=== PATIENT | female | born 1935 | race Two or more races ===

== ENCOUNTER → 2020-09-12 | Outpatient (CLI) | payer MEDICARE | END | disposition home or self-care (01) | LOC: MSC 15:30 | PROVIDERS: ATTEND Internal Medicine | DX: J06.9 Acute upper respiratory infection, unspecified (principal); R41.89 Other symptoms and signs involving cognitive functions and awareness; R46.89 Other symptoms and signs involving appearance and behavior; I73.00 Raynaud's syndrome without gangrene; I10 Essential (primary) hypertension ==

== ENCOUNTER 2020-10-10 11:04 | Outpatient (CLI) | payer MEDICARE | END 2020-10-10 23:59 | disposition home or self-care (01) | LOC: WOU 11:04 | PROVIDERS: ATTEND Podiatrist Foot & Ankle Surgery | DX: S90.31XA Contusion of right foot, initial encounter (principal); W22.8XXA Striking against or struck by other objects, initial encounter; Y92.89 Other specified places as the place of occurrence of the external cause; R60.0 Localized edema; B35.1 Tinea unguium; M79.674 Pain in right toe(s) | CPT/HCPCS: 73630; G0463 ==

== ENCOUNTER 2020-10-21 09:44 | Outpatient (CLI) | payer MEDICARE | END 2020-10-21 23:59 | disposition home or self-care (01) | LOC: WOU 09:44 | PROVIDERS: ATTEND Podiatrist Foot & Ankle Surgery | DX: M20.11 Hallux valgus (acquired), right foot (principal); M20.21 Hallux rigidus, right foot; L60.0 Ingrowing nail; R60.0 Localized edema; S90.31XD Contusion of right foot, subsequent encounter; W22.8XXD Striking against or struck by other objects, subsequent encounter | CPT/HCPCS: G0463 ==

== ENCOUNTER → 2020-12-05 | Outpatient (CLI) | payer MEDICARE | END | disposition home or self-care (01) | LOC: MSC 12:30 | PROVIDERS: ATTEND Internal Medicine | DX: Z09 Encounter for follow-up examination after completed treatment for conditions other than malignant neoplasm (principal); J06.9 Acute upper respiratory infection, unspecified; R41.89 Other symptoms and signs involving cognitive functions and awareness; R46.89 Other symptoms and signs involving appearance and behavior; R06.00 Dyspnea, unspecified; I73.00 Raynaud's syndrome without gangrene; I10 Essential (primary) hypertension; Z85.3 Personal history of malignant neoplasm of breast; Z87.440 Personal history of urinary (tract) infections; Z79.899 Other long term (current) drug therapy ==

== ENCOUNTER 2021-05-14 14:30 | Outpatient (CLI) | payer MEDICARE | END 2021-05-14 23:59 | disposition home or self-care (01) | LOC: MSC 14:30 | PROVIDERS: ATTEND Internal Medicine | DX: M54.9 Dorsalgia, unspecified (principal); R13.10 Dysphagia, unspecified; K59.00 Constipation, unspecified; J06.9 Acute upper respiratory infection, unspecified; R41.89 Other symptoms and signs involving cognitive functions and awareness; R46.89 Other symptoms and signs involving appearance and behavior; R06.00 Dyspnea, unspecified; I73.00 Raynaud's syndrome without gangrene; I10 Essential (primary) hypertension ==

== ENCOUNTER → 2021-09-11 | Outpatient (CLI) | payer MEDICARE | END | disposition home or self-care (01) | LOC: MSC 13:30 | PROVIDERS: ATTEND Internal Medicine | DX: Z51.89 Encounter for other specified aftercare (principal); R13.10 Dysphagia, unspecified; M54.9 Dorsalgia, unspecified; K59.00 Constipation, unspecified; J39.8 Other specified diseases of upper respiratory tract; R41.89 Other symptoms and signs involving cognitive functions and awareness; R46.89 Other symptoms and signs involving appearance and behavior; R06.00 Dyspnea, unspecified; I73.00 Raynaud's syndrome without gangrene; I10 Essential (primary) hypertension ==

== ENCOUNTER → 2021-09-22 | Outpatient (CLI) | payer MEDICARE | END | disposition home or self-care (01) | LOC: MSC 15:00 | PROVIDERS: ATTEND Internal Medicine | DX: J39.8 Other specified diseases of upper respiratory tract (principal); R13.10 Dysphagia, unspecified; M54.9 Dorsalgia, unspecified; K59.00 Constipation, unspecified; R41.89 Other symptoms and signs involving cognitive functions and awareness; R46.89 Other symptoms and signs involving appearance and behavior; R06.00 Dyspnea, unspecified; I73.00 Raynaud's syndrome without gangrene; I10 Essential (primary) hypertension ==

== ENCOUNTER 2022-02-23 11:10 | Outpatient (CLI) | payer MEDICARE ==
[2022-02-23 12:33] LABS: BASOPHILS % (AUTO) 0.5 % (0.0-2.0); EOSINOPHILS % (AUTO) 1.4 % (0.0-6.0); HEMATOCRIT 37 % (33-45); HEMOGLOBIN 12.3 g/dL (11.5-14.8); LYMPHOCYTES # (AUTO) 1.4 K/uL (0.8-4.8); LYMPHOCYTES % (AUTO) 23.2 % (20.0-44.0); MEAN CORPUSCULAR HGB CONC 33 g/dl (31.0-36.0); MEAN CORPUSCULAR VOLUME 87 fL (82-100); MONOCYTES # (AUTO) 0.5 K/uL (0.1-1.30); MONOCYTES % (AUTO) 8.3 % (2.0-12.0); NEUTROPHILS # (AUTO) 4.1 K/uL (1.8-8.9); NEUTROPHILS % (AUTO) 66.6 % (43.0-81.0); PLATELET COUNT (AUTO) 331 K/uL (150-450); RED BLOOD CELL COUNT(AUTO) 4.29 MIL/uL (4.0-5.2); WHITE BLOOD COUNT (AUTO) 6.1 K/uL (4.3-11.0)
[2022-02-23 12:51] LABS: IRON, SERUM 39 ug/dl (50-175); TOTAL IRON BINDING CAPACITY 371 ug/dl (250-450)
[2022-02-23 13:04] LABS: C-REACTIVE PROTEIN 0.5 mg/dL (0.0-0.9); CHOLESTEROL 228 mg/dL (<200); FERRITIN 41 ng/mL (8-388); HDL CHOLESTEROL 76 mg/dL (40-60); LDL 121 mg/dL (0-99); THYROID STIMULATING HORMONE 1.397 uIU/mL (0.358-3.74); TRIGLYCERIDES 79 mg/dL (30-150)
[2022-02-23 13:15] LABS: ALANINE AMINOTRANSFERASE 18 U/L (12-78); ALBUMIN 3.4 g/dL (3.4-5.0); ALKALINE PHOSPHATASE 108 U/L (46-116); ASPARTATE AMINOTRANSFERASE 13 U/L (15-37); BILIRUBIN,TOTAL 0.5 mg/dL (0.2-1.0); CALCIUM, SERUM 9.2 mg/dL (8.5-10.1); CARBON DIOXIDE 31 mmol/L (21-32); CHLORIDE 98 mmol/L (98-107); CREATININE 0.5 mg/dL (0.6-1.3); GLUCOSE 99 mg/dL (74-106); MAGNESIUM 2.1 mg/dL (1.8-2.4); PHOSPHORUS 3.4 mg/dL (2.5-4.9); POTASSIUM 3.9 mmol/L (3.5-5.1); SODIUM SERUM 135 mmol/L (136-145); TOTAL PROTEIN, SERUM 7.9 g/dL (6.4-8.2); UREA NITROGEN, BLOOD 14 mg/dL (7-18)
== END 2022-02-23 23:59 ==
LOC: MSC 11:10
PROVIDERS: ATTEND Internal Medicine
DX: S81.802A Unspecified open wound, left lower leg, initial encounter (principal); I10 Essential (primary) hypertension; J06.9 Acute upper respiratory infection, unspecified; Z96.642 Presence of left artificial hip joint; Z91.81 History of falling; R13.10 Dysphagia, unspecified; M54.9 Dorsalgia, unspecified; K59.00 Constipation, unspecified; R41.89 Other symptoms and signs involving cognitive functions and awareness; R46.89 Other symptoms and signs involving appearance and behavior; R06.00 Dyspnea, unspecified; I73.00 Raynaud's syndrome without gangrene; Z90.13 Acquired absence of bilateral breasts and nipples; Z79.899 Other long term (current) drug therapy
CPT/HCPCS: 36415; 80053; 80061; 82306; 82607; 82728; 82746; 83036; 83540; 83735; 84100; 84145; 84439; 84443; 85025; 85652; 86140; G0463

== ENCOUNTER 2022-03-15 13:20 | Outpatient (CLI) | payer MEDICARE | END 2022-03-15 23:59 | disposition home health service (06) | LOC: WOU 13:20 | PROVIDERS: ATTEND Surgery | DX: L03.116 Cellulitis of left lower limb (principal); M16.9 Osteoarthritis of hip, unspecified; M62.50 Muscle wasting and atrophy, not elsewhere classified, unspecified site; I10 Essential (primary) hypertension | CPT/HCPCS: G0463 ==

== ENCOUNTER 2022-03-23 10:30 | Outpatient (CLI) | payer MEDICARE ==
[2022-03-23] MEDS ORDERED: UREA 10% -AHA 4% CREAM 57 GM TUBE ONE (10:43)
[2022-03-23] MEDS ORDERED: HYDROCORTISONE 1% CREAM 28.35 GM TUBE TP ONE (10:43)
== END 2022-03-23 23:59 | disposition home health service (06) ==
LOC: WOU 10:30
PROVIDERS: ATTEND Podiatrist Foot & Ankle Surgery
DX: I87.2 Venous insufficiency (chronic) (peripheral) (principal); M16.9 Osteoarthritis of hip, unspecified; I10 Essential (primary) hypertension; M62.50 Muscle wasting and atrophy, not elsewhere classified, unspecified site
CPT/HCPCS: G0463

== ENCOUNTER 2022-06-07 13:00 | Outpatient (CLI) | payer MEDICARE | END 2022-06-07 23:59 | disposition home or self-care (01) | LOC: MSC 13:00 | PROVIDERS: ATTEND Internal Medicine | DX: R54 Age-related physical debility (principal); S81.802D Unspecified open wound, left lower leg, subsequent encounter; Z96.642 Presence of left artificial hip joint; Z91.81 History of falling; I10 Essential (primary) hypertension; J39.8 Other specified diseases of upper respiratory tract; R13.10 Dysphagia, unspecified; M54.9 Dorsalgia, unspecified; K59.00 Constipation, unspecified; R41.89 Other symptoms and signs involving cognitive functions and awareness; R46.89 Other symptoms and signs involving appearance and behavior; R06.00 Dyspnea, unspecified; I73.00 Raynaud's syndrome without gangrene; Z85.3 Personal history of malignant neoplasm of breast; Z90.13 Acquired absence of bilateral breasts and nipples; Z79.899 Other long term (current) drug therapy ==

== ENCOUNTER → 2022-06-17 | Outpatient (CLI) | payer MEDICARE | END | disposition home or self-care (01) | LOC: MSC 11:15 | PROVIDERS: ATTEND Internal Medicine | DX: M79.605 Pain in left leg (principal); R53.81 Other malaise; Z96.642 Presence of left artificial hip joint; Z91.81 History of falling; I10 Essential (primary) hypertension; R05.9 Cough, unspecified; R13.10 Dysphagia, unspecified; M54.9 Dorsalgia, unspecified; Z79.1 Long term (current) use of non-steroidal anti-inflammatories (NSAID); K59.00 Constipation, unspecified; J06.9 Acute upper respiratory infection, unspecified; R41.89 Other symptoms and signs involving cognitive functions and awareness; R46.89 Other symptoms and signs involving appearance and behavior; R06.00 Dyspnea, unspecified; I73.00 Raynaud's syndrome without gangrene; Z85.3 Personal history of malignant neoplasm of breast; Z90.13 Acquired absence of bilateral breasts and nipples; Z79.899 Other long term (current) drug therapy ==

== ENCOUNTER → 2022-09-24 | Outpatient (CLI) | payer MEDICARE | END | disposition home or self-care (01) | LOC: MSC 14:45 | PROVIDERS: ATTEND Internal Medicine | DX: U07.1 COVID-19 (principal); M25.552 Pain in left hip; Z96.642 Presence of left artificial hip joint; M25.551 Pain in right hip; M79.605 Pain in left leg; R53.81 Other malaise; I10 Essential (primary) hypertension; R05.9 Cough, unspecified; R13.10 Dysphagia, unspecified; M54.9 Dorsalgia, unspecified; Z79.1 Long term (current) use of non-steroidal anti-inflammatories (NSAID); K59.00 Constipation, unspecified; J39.8 Other specified diseases of upper respiratory tract; R41.89 Other symptoms and signs involving cognitive functions and awareness; R46.89 Other symptoms and signs involving appearance and behavior; R06.00 Dyspnea, unspecified; I73.00 Raynaud's syndrome without gangrene; Z85.3 Personal history of malignant neoplasm of breast; Z90.13 Acquired absence of bilateral breasts and nipples; Z79.899 Other long term (current) drug therapy ==

== ENCOUNTER 2022-11-23 10:30 | Outpatient (CLI) | payer MEDICARE | END 2022-11-23 23:59 | disposition home or self-care (01) | LOC: MSC 10:30 | PROVIDERS: ATTEND Internal Medicine | DX: L97.929 Non-pressure chronic ulcer of unspecified part of left lower leg with unspecified severity (principal); L03.90 Cellulitis, unspecified; U07.1 COVID-19; M25.552 Pain in left hip; M25.551 Pain in right hip; M79.605 Pain in left leg; R53.81 Other malaise; I10 Essential (primary) hypertension; R05.9 Cough, unspecified; R13.10 Dysphagia, unspecified; M54.9 Dorsalgia, unspecified; Z79.1 Long term (current) use of non-steroidal anti-inflammatories (NSAID); K59.00 Constipation, unspecified; J06.9 Acute upper respiratory infection, unspecified; R41.89 Other symptoms and signs involving cognitive functions and awareness; R46.89 Other symptoms and signs involving appearance and behavior; R06.00 Dyspnea, unspecified; I73.00 Raynaud's syndrome without gangrene; Z85.3 Personal history of malignant neoplasm of breast; Z90.13 Acquired absence of bilateral breasts and nipples; Z79.899 Other long term (current) drug therapy ==

== ENCOUNTER → 2022-12-14 | Outpatient (CLI) | payer MEDICARE | END | disposition home or self-care (01) | LOC: MSC 14:30 | PROVIDERS: ATTEND Internal Medicine | DX: L97.928 Non-pressure chronic ulcer of unspecified part of left lower leg with other specified severity (principal); L03.116 Cellulitis of left lower limb; F32.A Depression, unspecified; U07.1 COVID-19; M25.551 Pain in right hip; I10 Essential (primary) hypertension; R05.9 Cough, unspecified; R13.10 Dysphagia, unspecified; M54.9 Dorsalgia, unspecified; Z79.1 Long term (current) use of non-steroidal anti-inflammatories (NSAID); J06.9 Acute upper respiratory infection, unspecified; R41.89 Other symptoms and signs involving cognitive functions and awareness; R46.89 Other symptoms and signs involving appearance and behavior; R06.00 Dyspnea, unspecified; Z85.3 Personal history of malignant neoplasm of breast; Z90.13 Acquired absence of bilateral breasts and nipples ==

== ENCOUNTER 2022-12-21 11:00 | Outpatient (CLI) | payer MEDICARE ==
[2022-12-21 12:25] LABS: BASOPHILS % (AUTO) 0.4 % (0.0-2.0); EOSINOPHILS % (AUTO) 0.5 % (0.0-6.0); HEMATOCRIT 42 % (33-45); HEMOGLOBIN 13.9 g/dL (11.5-14.8); LYMPHOCYTES # (AUTO) 0.9 K/uL (0.8-4.8); LYMPHOCYTES % (AUTO) 12.9 % (20.0-44.0); MEAN CORPUSCULAR HGB CONC 33 g/dl (31.0-36.0); MEAN CORPUSCULAR VOLUME 87 fL (82-100); MONOCYTES # (AUTO) 0.5 K/uL (0.1-1.30); MONOCYTES % (AUTO) 7.5 % (2.0-12.0); NEUTROPHILS # (AUTO) 5.6 K/uL (1.8-8.9); NEUTROPHILS % (AUTO) 78.7 % (43.0-81.0); PLATELET COUNT (AUTO) 310 K/uL (150-450); RED BLOOD CELL COUNT(AUTO) 4.82 MIL/uL (4.0-5.2); WHITE BLOOD COUNT (AUTO) 7.1 K/uL (4.3-11.0)
[2022-12-21 12:51] LABS: IRON, SERUM 56 ug/dl (50-175); TOTAL IRON BINDING CAPACITY 340 ug/dl (250-450)
[2022-12-21 12:57] LABS: C-REACTIVE PROTEIN 1.1 mg/dL (0.0-0.9); CHOLESTEROL 223 mg/dL (<200); FERRITIN 85 ng/mL (8-388); HDL CHOLESTEROL 91 mg/dL (40-60); LDL 117 mg/dL (0-99); THYROID STIMULATING HORMONE 1.503 uIU/mL (0.358-3.74); TRIGLYCERIDES 77 mg/dL (30-150)
[2022-12-21 13:16] LABS: ALANINE AMINOTRANSFERASE 22 U/L (12-78); ALBUMIN 3.7 g/dL (3.4-5.0); ALKALINE PHOSPHATASE 118 U/L (46-116); ASPARTATE AMINOTRANSFERASE 17 U/L (15-37); BILIRUBIN,TOTAL 0.6 mg/dL (0.2-1.0); CALCIUM, SERUM 9.6 mg/dL (8.5-10.1); CARBON DIOXIDE 31 mmol/L (21-32); CHLORIDE 97 mmol/L (98-107); CREATININE 0.5 mg/dL (0.6-1.3); GLUCOSE 105 mg/dL (74-106); MAGNESIUM 2.5 mg/dL (1.8-2.4); PHOSPHORUS 3.4 mg/dL (2.5-4.9); SODIUM SERUM 134 mmol/L (136-145); UREA NITROGEN, BLOOD 16 mg/dL (7-18)
== END 2022-12-21 23:59 | disposition home or self-care (01) ==
LOC: MSC 11:00
PROVIDERS: ATTEND Internal Medicine
DX: L97.928 Non-pressure chronic ulcer of unspecified part of left lower leg with other specified severity (principal); L03.116 Cellulitis of left lower limb; I87.2 Venous insufficiency (chronic) (peripheral); F32.A Depression, unspecified; U07.1 COVID-19; I10 Essential (primary) hypertension; M25.551 Pain in right hip; S72.92XD Unspecified fracture of left femur, subsequent encounter for closed fracture with routine healing; Z96.642 Presence of left artificial hip joint; R05.9 Cough, unspecified; R13.10 Dysphagia, unspecified; M54.9 Dorsalgia, unspecified; Z79.1 Long term (current) use of non-steroidal anti-inflammatories (NSAID); J06.9 Acute upper respiratory infection, unspecified; R41.89 Other symptoms and signs involving cognitive functions and awareness; R46.89 Other symptoms and signs involving appearance and behavior; R06.00 Dyspnea, unspecified; Z85.3 Personal history of malignant neoplasm of breast; Z90.13 Acquired absence of bilateral breasts and nipples; Z79.899 Other long term (current) drug therapy
CPT/HCPCS: 80061; 84145; 85025; 83540; 83735; 83036; 84100; 85652; 36415; 82746; 84443; 82607; 80053; 82728; 86140; 82306; G0463

== ENCOUNTER 2023-02-15 09:15 | Outpatient (CLI) | payer MEDICARE | END 2023-02-15 23:59 | disposition home or self-care (01) | LOC: MSC 09:15 | PROVIDERS: ATTEND Internal Medicine | DX: K30 Functional dyspepsia (principal); R19.7 Diarrhea, unspecified; L97.928 Non-pressure chronic ulcer of unspecified part of left lower leg with other specified severity; L03.116 Cellulitis of left lower limb; I87.2 Venous insufficiency (chronic) (peripheral); F32.A Depression, unspecified; U07.1 COVID-19; I10 Essential (primary) hypertension; M25.551 Pain in right hip; Z96.642 Presence of left artificial hip joint; R13.10 Dysphagia, unspecified; M54.9 Dorsalgia, unspecified; Z79.1 Long term (current) use of non-steroidal anti-inflammatories (NSAID); J06.9 Acute upper respiratory infection, unspecified; R41.89 Other symptoms and signs involving cognitive functions and awareness; R46.89 Other symptoms and signs involving appearance and behavior; R06.00 Dyspnea, unspecified; Z85.3 Personal history of malignant neoplasm of breast; Z90.13 Acquired absence of bilateral breasts and nipples; Z79.899 Other long term (current) drug therapy ==